=== PATIENT | female | born 1995 | race Caucasian/White ===

== ENCOUNTER → 2019-05-26 14:59 | Outpatient (CLI) | payer BC, MEDICAID ==
[~2019-05-26 14:59] MED LIST: ASCORBIC ACID500 MG PO; PRENAVITE1 TAB PO; PROTONIX20 MG PO
[2019-05-26 15:52] LABS: APPEARANCE CLEAR (CLEAR); BILIRUBIN NEGATIVE (NEGATIVE); COLOR YELLOW (YELLOW); GLUCOSE NEGATIVE (NEGATIVE); KETONE SMALL mg/dL (NEGATIVE); NITRITE NEGATIVE (NEGATIVE); PROTEIN NEGATIVE (NEGATIVE); UROBILINOGEN NORMAL (NORMAL)
[2019-05-26 15:54] LABS: BASOPHILS 0.1 % (0-2); EOSINOPHILS 1.2 % (0-7); HEMATOCRIT 28.7 % (36.0-48.0); IMMATURE GRANULOCYTES 0.5 % (0-5); LYMPHOCYTES 12.2 % (15-50); MCH 27.8 pg (26.0-34.0); MCHC 31.4 g/dL (31.0-37.0); MCV 88.6 fL (80.0-100.0); MEAN PLATELET VOLUME 10.7 fL (7.4-10.4); PLATELET COUNT 204 10x3/uL (130-400); RBC 3.24 10x6/uL (4.00-5.40); RDW 13.3 % (11.5-14.5); WBC 9.4 10x3/uL (4.8-10.8)
[2019-05-26 16:02] LABS: CALC OSMOLALITY 274 mosm/kg (275-300); CARBON DIOXIDE 24.4 mmol/L (21.0-32.0); CHLORIDE - SERUM 105 mmol/L (98-107); CREATININE - SERUM 0.5 mg/dL (0.6-1.3); GLUCOSE 77 mg/dL (74-106); POTASSIUM - SERUM 3.7 mmol/L (3.5-5.1); SODIUM 139 mmol/L (136-145); UREA NITROGEN 7 mg/dL (7-18); eGFR NON AFRICAN AMERICAN > 90 mL/min (90-120)
[2019-05-26 16:06] LABS: ALBUMIN 2.4 g/dL (3.4-5.0); ALKALINE PHOSPHATASE 101 U/L (46-116); ALT (SGPT) 15 U/L (10-68); PROTEIN - SERUM 6.2 g/dL (6.4-8.2)
== END | disposition home or self-care (01) ==
LOC: D.LDO 14:59
PROVIDERS: ATTEND Student in an Organized Health Care Education/Training Program
DX: O26.899 Other specified pregnancy related conditions, unspecified trimester (principal); R42 Dizziness and giddiness

== ENCOUNTER → 2019-07-13 20:39 | Outpatient (CLI) | payer BC, MEDICAID ==
[2019-07-13 21:52] LABS: BILIRUBIN NEGATIVE (NEGATIVE); KETONE NEGATIVE (NEGATIVE); NITRITE NEGATIVE (NEGATIVE); UROBILINOGEN NORMAL (NORMAL)
[2019-07-13 21:58] LABS: GLUCOSE NEGATIVE (NEGATIVE)
[2019-07-13 21:59] LABS: BACTERIA MODERATE /hpf (NEGATIVE); EPITHELIAL CELLS 0-5 /hpf (0-5); RED CELLS - URINE 0-5 /hpf (0-5)
[2019-07-14 04:10] VITALS: BMI 31.0
== END | disposition home or self-care (01) ==
LOC: D.LDO 20:39
PROVIDERS: ATTEND Obstetrics & Gynecology
DX: O26.899 Other specified pregnancy related conditions, unspecified trimester (principal)

== ENCOUNTER 2019-07-14 03:10 | Inpatient (IN) | payer BC, MEDICAID ==
[~2019-07-14] VITALS: Ht 157.5 cm; Wt 76.8 kg
[2019-07-14 04:10] VITALS: BP 131/82; Ht 157.5 cm; Wt 76.8 kg
[2019-07-14 05:31] LABS: HEMATOCRIT 29.5 % (36.0-48.0); HEMOGLOBIN 8.9 g/dL (12-16); MCH 24.7 pg (26.0-34.0); MCHC 30.2 g/dL (31.0-37.0); MCV 81.9 fL (80.0-100.0); MEAN PLATELET VOLUME 12.2 fL (7.4-10.4); RBC 3.6 10x6/uL (4.00-5.40); RDW 15.3 % (11.5-14.5); WBC 10.6 10x3/uL (4.8-10.8)
--- NOTE | 2019-07-14 15:14 | NUR ---
AMBULATORY TO ROOM 1276 FROM 1275 FOR CONTINUED PP CARE. ORIENTED TO ROOM, VERBALIZES UNDERSTANDING. POC DISCUSSED WITH PT, VERBALIZES UNDERSTANDING AND DENIES QUESTIONS. INSTRUCTED ON CONTACTING NBN FROM ROOM PHONE, VERBALIZES UNDERSTANDING. BED IN LOW POSITION WITH SRUP X2. CALL LIGHT AND PHONE WITHIN REACH. WILL CONTINUE TO MONITOR.
--- NOTE | 2019-07-14 15:56 | NUR ---
SITTING IN HIGH FOWLERS POSITION, BONDING WITH INFANT. C/O RETURN OF HEADACHE, CONSTANT DULL ACHE 08/18. DENIES NEED FOR INTERVENTION. CONVERSING WITH VISITORS AT THIS TIME. BED IN LOW POSITION WITH SRUP X2. CALL LIGHT AND PHONE WITHIN REACH. WILL CONTINUE TO MONITOR.
--- NOTE | 2019-07-14 16:34 | NUR ---
REPORTS THAT SINCE BEING UP AND AMBULATING, HEADACHE HAS RETURNED, 3-4/10, DULL CONSTANT ACHE. DENIES NEED FOR INTERVENTION. DENIES VISUAL CHANGES, EPIGASTRIC PAIN, NV, DTR'S REMAIN 2+. REPORTS THAT HEADACH WAS COMPLETELY GONE UNTIL SHE GOT UP TO AMBULATE TO AND NEW ROOM. HOB LOWERED AND LIGHTS OFF, INSTRUCTED TO NOTIFY RN IF HEADACHE CONTINUES, VERBALIZES UNDERSTANDING.
--- NOTE | 2019-07-14 16:41 | NUR ---
Bibi GARDNER, LINE SERVICE SUPERVISOR ON UNIT. INFORMED OF PT COMPLAINTS OF HEADACHE AND ASSESSMENT FINDINGS. PER Bibi GARDNER, LINE SERVICE SUPERVISOR CONTINUE TO MONITOR THROUGH NIGHT AND IF HEADACHE PERSISTS OR INTENSIFIES, NOTIFY ANESTHESIA FOR EVAL PRN. PT UPDATED ON POC, VERBALIZES UNDERSTANDING.
[2019-07-14 17:57] VITALS: BP 130/87
--- NOTE | 2019-07-14 17:58 | NUR ---
SARAVANAN HUNTER. B/P 130/87. SITTING IN HIGH FOWLERS POSITION. REPORTS THAT HEADACHE IS STILL PRESENT. CONVERSING WITH VISITORS, ENCOURAGED TO REST, STATES THAT SHE WILL WHEN VISITORS LEAVE.
--- NOTE | 2019-07-14 19:25 | NUR ---
BEDSIDE SHIFT REPORT COMPLETED, PT . PT WILL CALL WHEN SHE IS FINISHED FOR SHIFT ASSESSMENT
--- NOTE | 2019-07-14 20:30 | NUR ---
PT EATING FOOD BROUGHT FROM FAMILY. WILL COME BACK FOR SHIFT ASSESSMENT
[2019-07-14 20:44] VITALS: BP 150/86
--- NOTE | 2019-07-14 20:44 | NUR ---
shift assessment completed. see flowsheet
--- NOTE | 2019-07-14 23:00 | NUR ---
PT LYING IN BED WITH EYES OPEN, DENIES PAIN OR NEEDS. IN FOB'S ARMS. WILL CONTINUE TO MONITOR
[2019-07-15] VITALS (7 sets, daily range): BP systolic 108–131; BP diastolic 59–88
--- NOTE | 2019-07-15 00:15 | NUR ---
PT SLEEPING, EASILY AROUSED TO VERBAL. VS TAKEN WNL. PT DENIES NEEDS OR PAIN AT THIS TIME. WILL CONTINUE TO MONITOR.
--- NOTE | 2019-07-15 01:55 | NUR ---
INFANT TO ROOM VIA OPEN CRIB TO BREASTFEED AT THIS TIME. PT DENIES NEEDS.
--- NOTE | 2019-07-15 03:15 | NUR ---
PT LYING IN BED HOLDING INFANT, INFANT PLACED IN OPEN CRIB PER PATIENTS REQUEST. PT DENIES PAIN OR NEEDS AT THIS TIME. BED REMAINS LOCKED IN LOW POSITION, SIDE RAILS UPX2, CALL M[place] AND TRAY TABLE IN REACH. WILL CONTINUE TO MONITOR
--- NOTE | 2019-07-15 05:51 | NUR ---
PATIENT SLEEPING, RESPIRATIONS EVEN AND NON LABORED. NO DISTRESS NOTED. WILL CONTINUE TO MONITOR
--- NOTE | 2019-07-15 06:59 | NUR ---
PT SLEEPING, SHIFT REPORT TO IVANNA CARLSON TO ASSUME PT CARE.
--- NOTE | 2019-07-15 08:12 | NUR ---
DR. CARREON ON UNIT. PER DR. CARREON PT IS C/O HEADACHE. DISCUSSED PT C/O HEADACHE AND CHARACTERISTIC. ANESTHESIA CONTACTED AND WILL COME TO UNIT FOR EVAL.
--- NOTE | 2019-07-15 08:41 | NUR ---
BF AND CONVERSING WITH MARVEL. WILL CONTINUE TO MONITOR.
--- NOTE | 2019-07-15 09:10 | NUR ---
BF COMPLETED. SHIFT ASSESSMENT COMPLETED PER FLOWSHEET. VSS. FUNDUS FIRM, MIDLINE AND U2 WITH SCANT RUBRA LOCHIA, NO CLOTS NOTED. MILD BILATERAL LABIAL EDEMA NOTED. 3+ BLE PITTING EDEMA NOTED. CONTINUES TO C/O DULL CONSTANT HEADACHE 3/10, DENIES NEED FOR INTERVENTION AT THIS TIME. POC DISCUSSED WITH PT, VERBALIZES UNDERSTANDING AND DENIES NEEDS. INFANT RESTING IN OPEN CRIB AT BEDSIDE. BED IN LOW POSITION WITH SRUP X2. CALL LIGHT AND PHONE WITHIN REACH. WILL CONTINUE TO MONITOR.
--- NOTE | 2019-07-15 09:31 | NUR ---
DR. REINOSO ON UNIT TO DEMI PT.
--- NOTE | 2019-07-15 09:36 | NUR ---
DR. REINOSO OUT OF ROOM, REQUEST CONSENT BE OBTAINED FOR BLOOD PATCH.
--- NOTE | 2019-07-15 10:10 | NUR ---
INFORMED CONSENT OBTAINED FOR BLOOD PATCH PROCEDURE AND WITNESSED, PT DENIES QUESTIONS, REPORTS THAT DR. REINOSO DISCUSSED PROCEDURE WITH HER AND ANSWERED HER QUESTIONS WHEN HE CAME IN FOR EVAL.
--- NOTE | 2019-07-15 10:11 | NUR ---
TRAMADOL GIVEN PER ORDER. PT EDUCATED ON MED AND VERBALIZES UNDERSTANDING, DENIES QUESTIONS. FALL PRECAUTIONS REINFORCED, VERBALIZES UNDERSTANDING. SIGNIFICANT OTHER AT BEDSIDE, SUPPORTIVE AND ATTENTIVE TO PT AND NEEDS. BED IN LOW POSITION WITH SRUP X2. CALL LIGHT AND PHONE WITHIN REACH.
[2019-07-15 10:14] LABS: HEMOGLOBIN 8.6 g/dL (12-16); LYMPHOCYTES 14.4 % (15-50); MCH 24.4 pg (26.0-34.0); MCHC 29.7 g/dL (31.0-37.0); MCV 82.2 fL (80.0-100.0); MEAN PLATELET VOLUME 11.9 fL (7.4-10.4); NEUTROPHILS 77.3 % (40-80); PLATELET COUNT 156 10x3/uL (130-400); RBC 3.53 10x6/uL (4.00-5.40); RDW 14.4 % (11.5-14.5); WBC 12.3 10x3/uL (4.8-10.8)
[2019-07-15 10:45] LABS: RAPID PLASMA REAGIN Non Reactive (Non Reactive)
--- NOTE | 2019-07-15 11:16 | NUR ---
RESTING QUIETLY IN SEMI-FOWLWERS POSITION WITH EYES CLOSED. RESP REGULAR AND UNLABORED, NO S/S OF DISTRESS NOTED. RESTING IN OPEN CRIB AT BEDSIDE, SIGNIFICANT OTHER RESTING ON COUCH AT BEDSIDE. BED IN LOW POSITION WITH SRUP X2. CALL LIGHT AND PHONE WITHIN REACH. WILL CONTINUE TO MONITOR.
--- NOTE | 2019-07-15 13:13 | NUR ---
ATTEMPTED TO REACH ANESTHESIA FOR UPDATE ON BLOOD PATCH TIME, NO ANSWER REC'D IN LOUNGE. Nancy MENG RN NOTIFIED AND WILL FOLLOW UP WELL. PT UPDATED, VERBALIZES UNDERSTANDING.
--- NOTE | 2019-07-15 13:23 | NUR ---
PT SERVED MT. DEW AND LARGE GLASS OF ICE WATER SERVED TO PT. PT ENCOURAGED TO INCREASE FLUID INTAKE. PT AGREES. PT DENIES ALL OTHER NEEDS AT THIS TIME. SRUP X2, CALL LIGHT AND PHONE WITHIN REACH.
--- NOTE | 2019-07-15 15:33 | NUR ---
MARK CATHERINE LEADERSHIP DEVELOPMENT MANAGER TO ROOM TO EVALUATE PT. PT UP TO BATHROOM BEFORE BLOOD PATCH.
--- NOTE | 2019-07-15 15:43 | NUR ---
TIME OUT TAKEN FOR EPIDURAL BLOOD PATCH WITH MRAK CATHERINE CRNA. PT AGREES TO PROCEDURE.
--- NOTE | 2019-07-15 15:55 | NUR ---
17 CC'S PT'S BLOOD INJECTED BY HOG FEEDER. PT STATES "I CAN FEEL THE PRESSURE IN MY LOWER BACK, AND MY HEADACHE IS NOT GONE NOW, BUT SEEMS TO BE BETTER". PT RATING PAIN 3/10 NOW. LIGHTS OUT, COOL WASHCLOTHS PROVIDED FOR FACE/FOREHEAD. SRUP X2, CALL LIGHT AND PHONE WITHIN REACH. PT DENIES ALL NEEDS AT THIS TIME.
--- NOTE | 2019-07-15 17:30 | NUR ---
DR. GAMEZ CALLS TO UNIT, REPORT GIVEN TO MD OF PT STATUS, AND RECENT VS GIVEN TO MD. NO NEW ORDERS RECEIVED.
--- NOTE | 2019-07-15 18:45 | NUR ---
PT SITTING UP IN THE BED, HOLDING INFANT, ATTEMPTING TO BREASTFEED. PT HAVING DIFFICULTY LATCHING BABY, STATES "I WILL FEED BABY IF I CAN'T GET HER TO LATCH." NSY NURSE NOTIFIED. SRUP X2, CALL LIGHT AND PHONE WITHIN REACH, PT DENIES ALL OTHER NEEDS.
--- NOTE | 2019-07-15 19:30 | NUR ---
RN TO PT'S BEDSIDE FOR ASSESSMENT. VSS. PT STATES SHE HAS PAIN 1/10 ON PAIN SCALE TO HER HEAD. PT HAS +2 PITTING EDEMA TO BILATERAL LOWER EXTREMITY, FUNDUS IS FIRM, MIDLINE, 2 BELOW. SCANT RUBRA LOCHIA NOTED ON SHAKIR PAD. PT SITTING UP IN BED HOLDING AT THIS TIME. PT STATES ALL HER NEEDS ARE MET AT THIS TIME. BED IN LOWEST POSITION, PT'S FAMILY AT BEDSIDE, SIDE RAILS UP X2, CALL LIGHT WITHIN REACH.
--- NOTE | 2019-07-15 20:39 | NUR ---
RN TO PT BEDSIDE TO ASSESS PAIN, PT STATES HER PAIN IS 0-1/10 TO HER HEAD, PT STATES SHE DOES NOT CURRENTLY NEED ANY INTERVENTIONS FOR PAIN. BED IN LOWEST POSITION, SIDE RAILS UPX2, CALL LIGHT WITHIN REACH.
--- NOTE | 2019-07-15 23:14 | NUR ---
RN CALLED TO BEDSIDE, PT REQUESTS MORE BABY WIPES, BABY WIPES PROVIDED TO PT AT THIS TIME. BED IN LOWEST POSITION, SIDE RAILS UPX2, CALL LIGHT WITHIN REACH.
[2019-07-16 00:06] VITALS: BP 127/86
--- NOTE | 2019-07-16 00:06 | NUR ---
RN AT BEDSIDE FOR ROUNDING. PT STATES PAIN IS 0-1/10 TO HER HEAD, STATES SHE CURRENTLY DOESNT NEED ANY PAIN MEDICATIONS. VSS. 18G IV TO LEFT WRIST D/C PER PATIENT REQUEST. FUNDUS FIRM, MIDLINE, 2 BELOW, SCANT RUBRA LOCHIA NOTED. PT STATES SHE PLANS TO TAKE A BATH AT SOME POINT TONIGHT, RN TO BRING IN CLEAN GOWN, AND MORE PERIPADS AND BRIEF FOR PT'S BATH. BED IN LOWEST POSITION, INFANT IN PT'S ARM, SIDE RAILS UPX2, CALL LIGHT WITHIN REACH. FAMILY MEMBER AT BEDSIDE.
[2019-07-16 06:06] VITALS: BP 120/81
--- NOTE | 2019-07-16 06:06 | NUR ---
RN TO PT BEDSIDE FOR ROUNDING, PT SLEEPING, VITALS TAKEN. VSS. BED IN LOWEST POSITION, SIDE RAILS UPX2, CALL LIGHT IN REACH.
[2019-07-16 07:02] VITALS: BP 132/96
--- NOTE | 2019-07-16 07:05 | NUR ---
BEDSIDE REPORT AND AM ASSESSMENT COMPLETED, INFANT IN ARMS AND BONDING WELL NOTED. REPORTS TOLERATING PO INTAKE, +FLATUS, ABD SOFT AND NONTENDER, FUNDUS FIRM AT U/2 AND MIDLINE, LOCHIA RUBRA LIGHT AM[place], DENIES PASSAGE OF CLOTS, NO BM YET, VOIDING WITHOUT DIFFICULTY. DENIES VILLANUEVA STATES "I'VE FELT BETTER SINCE THEY DID MY BLOOD PATCH YESTERDAY." REVIEWED PLAN OF CARE TODAY, PROVIDED DERMAPLAST AND TUCKS PER REQUEST FOR PERINEAL DISCOMFORT. PT FAMILY IN ROOM WITH PT, NO NEEDS VOICED AT THIS TIME, NAD. WILL MONITOR FOR CHANGE IN CONDITION, CALL LIGHT IN EASY REACH.
--- NOTE | 2019-07-16 08:37 | NUR ---
ROUNDS COMPLETED, NAD NOTED, IN ARMS, PT FRIEND/FAMILY IN ROOM AT BS. DENIES NEEDS OR CONCERNS, CONSUMED 75% BREAKFAST TRAY PROVIDED WITHOUT PROBLEMS. CALL LIGHT IN EASY REACH. CONTINUE TO MONITOR.
--- NOTE | 2019-07-16 09:30 | NUR ---
DR GAMEZ TO UNIT ON ROUNDS. PT DENIES NEEDS OR CONCERNS, EXPRESSES DESIRE TO GO HOME TODAY SOON POSSIBLE. PT INFORMED NEED TO WAIT FOR ROUNDING OFFICE DIRECTOR TO DISCHARGE WELL. PT STATES UNDERSTANDING.
--- NOTE | 2019-07-16 10:30 | NUR ---
rounds completed, denies needs or concerns. will monitor.
--- NOTE | 2019-07-16 11:20 | NUR ---
dr serrano to pt room to discuss and possible discharge pending lab results. pt states understanding, denies needs to this rn on inquiry. will monitor.
--- NOTE | 2019-07-16 11:45 | NUR ---
discharge instructions provided with handouts for referral at home on care, , reportable warning signs and symptoms, pain managment, and follow up requirements. pt states understanding of all information provided. denies needs at this time. continue to monitor.
--- NOTE | 2019-07-16 12:35 | NUR ---
discharged to home via wc with infant secured in carrier per nursery staff. nad noted.
--- NOTE | 2019-07-16 13:16 | MORECARE ---
CASE MANAGEMENT DISCHARGE SUMMARY PATIENT: TIANA NORTON UNIT: [id number] ADM DATE: 07/14/19 AGE: 23 : 89 SEX: F ROOM/BED: D[facility] AUTHOR: TIFFANIE WAGNER PHYSICIAN: REFERRING PHYSICIAN: PABLO FAJARDO MD DATE OF SERVICE: 07/16/19 Discharge Plan Patient Name: TIANA NORTON [facility] [facility] 1995 Planned Disposition: Home or Self Care Anticipated Discharge Date: 07/16/19 Discharge Date: 07/16/2019 Expected LOS: 2 Initial Reviewer: [email or web address] Initial Review Date: 07/14/2019 Generated: 07/16/19 2:16 pm Patient Name: TIANA NORTON Page [id number] at 1316 All edits/amendments must be made on the electronic document DICTATION DATE: 07/16/19 1316 WATER JET LOOM FIXER: YUSEF 07/16/19 1316 RPT#: [id number] DC DATE:07/16/19 STATUS: DIS IN [facility] [address] [place] [address] END OF REPORT
== END 2019-07-16 12:35 | disposition home or self-care (01) | DRG 807 ==
LOC: D.LDO 03:10 → D.LD 03:41
PROVIDERS: Student in an Organized Health Care Education/Training Program; ADMIT Obstetrics & Gynecology; ATTEND Obstetrics & Gynecology
PROC: 10E0XZZ Delivery of Products of Conception, External Approach (ICD-10-PCS; principal; 2019-07-14)
PROC: 0KQM0ZZ Repair Perineum Muscle, Open Approach (ICD-10-PCS; 2019-07-14)
PROC: 3E0R3GC Introduction of Other Therapeutic Substance into Spinal Canal, Percutaneous Approach (ICD-10-PCS; 2019-07-15)
DX: O99.02 Anemia complicating childbirth (principal); Z37.0 Single live birth; D64.9 Anemia, unspecified; Z3A.39 39 weeks gestation of pregnancy; O70.1 Second degree perineal laceration during delivery; O89.4 Spinal and epidural anesthesia-induced headache during the puerperium